=== PATIENT | female | born 1950 ===

== ENCOUNTER 2017-06-08 06:51 | Emergency (ER) | payer MEDICARE, OTHER ==
[2017-06-08 07:05] VITALS: BP 133/83; PULSE 72; RESP 17; TEMP 98.4; O2SAT 98
--- NOTE | 2017-06-08 07:35 | ED PDOC ---
HPI: General Adult Time Seen by Provider: 06/08/17 07:03 Chief Complaint (Nursing): Medical Clearance Chief Complaint (Provider): Skin irritation History Per: Patient History/Exam Limitations: no limitations Current Symptoms Are (Timing): Still Present Additional Complaint(s): Dari Cummings is a 67 year old female who [facility] due to recent infestation of bedbugs at jail. She is deconned here. No other complaints. Past Medical History Reviewed: Historical Data, Nursing Documentation, Vital Signs Vital Signs: Last Vital Signs Temp 98.4 F 06/08/17 07:02 Pulse 72 06/08/17 07:02 Resp 17 06/08/17 07:02 BP 133/83 06/08/17 07:02 Pulse Ox 98 06/08/17 07:36 - Medical History PMH: Kidney Stones, Chronic Kidney Disease - Surgical History Surgical History: Appendectomy - Family History Family History: States: Unknown Family Hx - Immunization History Hx Tetanus Toxoid Vaccination: No Hx Influenza Vaccination: No Hx Pneumococcal Vaccination: No - Home Medications Home Medications: Ambulatory Orders Medication Instructions Recorded Cephalexin [cephalexin] 500 mg PO BID #14 cap 05/24/17 Permethrin 1 gm TOP ONCE #1 liquid 05/24/17 - Allergies Allergies/Adverse Reactions: Allergies Allergy/AdvReac Type Severity Reaction Status Date / Time No Known Allergies Allergy Verified 05/24/17 13:53 Review of Systems Skin: Positive for: Other (Irritation) - ECG O2 Sat by Pulse Oximetry: 98 Medical Decision Making Medical Decision Making: Impression: Plan: Decontamination Scribe Attestation: Documented by Nam Haywood, acting as a scribe for Lakesha Khanna MD. Provider Scribe Attestation: All medical record entries made by the Scribe were at my direction and personally dictated by me. I have reviewed the chart and agree that the record accurately reflects my personal performance of the history, physical exam, medical decision making, and the department course for this patient. I have also personally directed, reviewed, and agree with the discharge instructions and disposition. Disposition - Disposition Forms: [employer] (Belarusian)
== END 2017-06-08 08:10 | disposition home or self-care (01) ==
LOC: H.ER 06:51
DX: B88.9 Infestation, unspecified (principal)

== ENCOUNTER 2017-07-01 16:36 | Emergency (ER) | payer MEDICARE, OTHER ==
[2017-07-01] MEDS ORDERED: Permethrin 5% CREAM TOP ONE (17:17)
--- NOTE | 2017-07-01 17:31 | ED PDOC ---
HPI: General Adult Time Seen by Provider: 07/01/17 16:48 Chief Complaint (Nursing): Bite History Per: Patient History/Exam Limitations: no limitations Onset/Duration Of Symptoms: Days (1) Current Symptoms Are (Timing): Still Present Severity: Moderate Additional History Per: Patient Additional Complaint(s): 67 y/o female brought in by EMS from a intermediate for evaluation of possible "bed bugs." Patient reports that she developed itching and a rash this morning. She denies fever or other complaint. Past Medical History - Medical History PMH: Kidney Stones, Chronic Kidney Disease - Surgical History Surgical History: Appendectomy - Family History Family History: States: Unknown Family Hx - Immunization History Hx Tetanus Toxoid Vaccination: No Hx Influenza Vaccination: No Hx Pneumococcal Vaccination: No - Home Medications Home Medications: Ambulatory Orders Medication Instructions Recorded Cephalexin [cephalexin] 500 mg PO BID #14 cap 05/24/17 Permethrin 1 gm TOP ONCE #1 liquid 05/24/17 - Allergies Allergies/Adverse Reactions: Allergies Allergy/AdvReac Type Severity Reaction Status Date / Time No Known Allergies Allergy Verified 05/24/17 13:53 Review of Systems Constitutional: Negative for: Fever Skin: Positive for: Rash Physical Exam - Physical Exam Appears: Positive for: No Acute Distress Head Exam: Positive for: ATRAUMATIC Skin: Positive for: Rash (scattered erythematous papules with some skin burrowing noted. No vesicles or pustules. ) Respiratory: Negative for: Respiratory Distress - Progress ED Course And Treament: Patient decontaminated in the ED upon arrival and was found to have lice. Permethrin applied. Medical Decision Making Medical Decision Making: ~ Scribe Attestation: Documented by~Kiki Nolasco, acting as a scribe for ROSALIO Cervantes. Provider Scribe Attestation: All medical record entries made by the Scribe were at my direction and personally dictated by me. I have reviewed the chart and agree that the record accurately reflects my personal performance of the history, physical exam, medical decision making, and the department course for this patient. I have also personally directed, reviewed, and agree with the discharge instructions and disposition. Disposition - Clinical Impression Clinical Impression: Lice - Patient ED Disposition Is Patient to be Admitted: No - Disposition Referrals: [facility] [Outside] Disposition: Routine/Home Disposition Time: 18:19 Condition: STABLE Instructions: Body Lice (ED) Forms: [employer] (Tamazight)
[2017-07-01 19:19] VITALS: BP 130/82; PULSE 89; RESP 18; TEMP 97.9; O2SAT 100
== END 2017-07-01 19:20 | disposition home or self-care (01) ==
LOC: H.ER 16:36
DX: B85.2 Pediculosis, unspecified (principal); N18.9 Chronic kidney disease, unspecified

== ENCOUNTER 2018-02-07 07:38 | Emergency (ER) | payer MEDICARE, OTHER ==
[2018-02-07 07:42] VITALS: BMI 18.1
[2018-02-07 07:43] VITALS: BP 125/71; PULSE 80; RESP 20; TEMP 98; O2SAT 98
[2018-02-07] MEDS ORDERED: Naproxen 500 MG TAB PO STA (07:57)
--- NOTE | 2018-02-07 07:59 | ED PDOC ---
Upper Extremity Pain/Injury Time Seen by Provider: 02/07/18 07:51 Chief Complaint (Nursing): Back Pain History Per: Patient Onset/Duration Of Symptoms: Days (1) Quality: Aching Severity: Mild Pain Scale Rating Of: 3 Exacerbating Factor(s): Nothing Additional Complaint(s): Right shoulder/scapular pain since this AM. Denies injury or trauma. No exacerbating factor. Denies cough or SOB. Past Medical History Vital Signs: Last Vital Signs Temp 98 F 02/07/18 07:42 Pulse 80 02/07/18 07:42 Resp 20 02/07/18 07:42 BP 125/71 02/07/18 07:42 Pulse Ox 98 02/07/18 07:42 - Medical History PMH: No Chronic Diseases Denies: Kidney Stones (denies), Chronic Kidney Disease - Surgical History Surgical History: Appendectomy - Family History Family History: States: Unknown Family Hx - Immunization History Hx Tetanus Toxoid Vaccination: No Hx Influenza Vaccination: No Hx Pneumococcal Vaccination: No - Home Medications Home Medications: Ambulatory Orders Medication Instructions Recorded Albuterol HFA [Ventolin HFA 90 2 puff IH Q4 PRN #1 unit 11/08/17 mcg/actuation (8 g)] Azithromycin [Zithromax] 1 dose PO DAILY #1 pkt 11/08/17 Naproxen [Naprosyn] 500 mg PO Q12H #20 tab 02/07/18 - Allergies Allergies/Adverse Reactions: Allergies Allergy/AdvReac Type Severity Reaction Status Date / Time No Known Allergies Allergy Verified 11/08/17 11:36 Review of Systems Constitutional: Negative for: Fever Cardiovascular: Negative for: Chest Pain Respiratory: Negative for: Cough, Shortness of Breath Musculoskeletal: Positive for: Shoulder Pain Physical Exam - Physical Exam Appears: Positive for: Non-toxic, No Acute Distress Skin: Positive for: Normal Color, Warm, DRY Cardiovascular/Chest: Positive for: Regular Rate, Rhythm Respiratory: Positive for: CNT, Normal Breath Sounds Back: Positive for: Normal Inspection. Negative for: Vertebral Tenderness Extremity: Positive for: Normal ROM, Other (Tenderness post shoulder parascapular region.). Negative for: Deformity Neurologic/Psych: Positive for: Alert, Oriented. Negative for: Motor/Sensory Deficits - ECG O2 Sat by Pulse Oximetry: 98 Disposition - Clinical Impression Clinical Impression: Shoulder sprain - Patient ED Disposition Is Patient to be Admitted: No Counseled Patient/Family Regarding: Studies Performed, Diagnosis, Need For Followup, Rx Given - Disposition Referrals: [facility] [Outside] Disposition: Routine/Home Disposition Time: 09:19 Condition: FAIR Prescriptions: Naproxen [Naprosyn] 500 mg PO Q12H #20 tab Instructions: Shoulder Sprain Forms: [employer] (Khmer)
[2018-02-07] MEDS ORDERED: Naproxen 500 MG TAB PO ONE (08:00)
--- NOTE | 2018-02-07 08:38 | RAD ---
PROCEDURE: Radiographs of the Right Shoulder HISTORY: pain COMPARISON: No prior. FINDINGS: BONES: No fracture. Generalized osteopenia JOINTS: Glenohumeral and acromioclavicular arthrosis-both sites mild SOFT TISSUES: No periarticular calcification or ossification appreciated OTHER FINDINGS: None. IMPRESSION: No fracture, lytic lesion or periosteal reaction. Mild arthrosis -right shoulder. No gross calcific rotator cuff tendinopathy or calcific bursitis
== END 2018-02-07 09:26 | disposition home or self-care (01) ==
LOC: H.ER 07:38
DX: S43.401A Unspecified sprain of right shoulder joint, initial encounter (principal); Y92.89 Other specified places as the place of occurrence of the external cause